=== PATIENT | female | born 1980 | race Caucasian/White ===

== ENCOUNTER 2020-03-22 12:53 | Emergency (ER) | payer SELFPAY ==
[2020-03-22 13:03] VITALS: BP 147/76; PULSE 95; RESP 16; TEMP 35.6; O2SAT 98; BMI 33.6
[2020-03-22 13:53] VITALS: BP 141/83; PULSE 67; RESP 16; O2SAT 98
--- NOTE | 2020-03-22 14:02 | W.ED.DENTAL ---
HPI - Dental/Oral General: Chief complaint: Dental/Oral Stated complaint: tooth ache Time Seen by Provider: 03/22/20 13:50 History of Present Illness: HPI Narrative: 40-year-old female patient presents to the emergency department with 2-week old tooth avulsion, increased pain to the area x2 to 3 days. She reports attempted to get into a dentist but was not able to find an opening. She presents to the ER with nausea, increased sinus congestion. MD Complaint: tooth pain and tooth injury Location: Tooth # (12) Teeth map: 1. Avulsed tooth with root exposure Onset (ago): week(s) (2) Duration: constant Severity: moderate Severity scale (1-10): 5 Relieving factors: NSAIDs Exacerbating factors: chewing and cold Context: trauma (mechanism) Associated symptoms: Reports no associated symptoms; Denies fever(s) or odynophagia Review of Systems General: Reports: 10 or more systems reviewed and unremarkable except in HPI and below Const: Denies: fever(s), chills or diaphoresis Eyes: Denies: blurry vision or eye redness ENMT: Reports: nasal congestion and sinus pain (Left); Denies: throat pain, odynophagia, hoarseness, swelling of lips/tongue, dry mouth or disequilibrium Card: Denies: chest pain, palpitations or irregular heart rhythm Resp: Denies: dyspnea, productive cough, non-productive cough or wheezing GI: Denies: abdominal pain, nausea or vomiting : Denies: difficulty voiding or dysuria Musc: Denies: back pain Skin/Breast: Denies: rash or pruritus Neuro: Denies: headache(s), weakness in extremities or behavioral changes Jarret/Lymph: Denies: easy bruising Physical Exam Const: COMMON NORMALS: no acute distress, patient oriented x3, healthy appearing and alert GENERAL APPEARANCE: cooperative, comfortable and well hydrated HENMT: COMMON NORMALS: normocephalic, EAC's normal, TM's normal bilaterally, Normal external nose present and moist oral mucous membranes HEAD & SCALP: normocephalic FACE & SINUS: sinus tenderness maxillary (Left) and edema on the left maxilla NOSE: Normal external nose present EXTERNAL AUDITORY CANAL: EAC's normal TYMPANIC MEMBRANE: TM's normal bilaterally MOUTH: tongue normal; no drooling and lip not abnormal TEETH & GINGIVA IMAGES: 1. Tooth avulsion with root exposure, gingival edema surrounding the tooth, tenderness to the touch. Surrounding erythema THROAT: posterior oropharynx normal and other (Negative Ayaz's angina); posterior oropharynx not abnormal, no postnasal drainage and uvula not laterally displaced Eye: COMMON NORMALS: Equal, round and reactive pupils present and EOMs intact bilaterally GENERAL EYE: appearance normal, both eyes and all related structures PUPIL: Yes Equal, round and reactive pupils present Neck/C-Spine: COMMON NORMALS: full ROM and no lymphadenopathy GENERAL: Yes normal visual inspection and Yes trachea midline CERVICAL SPINE: Yes cervical ROM normal Lymph: LYMPHATIC: no lymphadenopathy noted Chest: COMMONS NORMALS: normal inspection of the chest Resp: COMMON NORMALS: normal respiratory effort and clear to auscultation bilaterally AUSCULTATION: clear to auscultation bilaterally Cardio: COMMON NORMALS: regular rhythm, S1 normal heart sound present, S2 normal heart sound present and Peripheral pulses 2+ throughout RHYTHM: regular rhythm HEART SOUNDS: S1 normal heart sound present and S2 normal heart sound present PERIPHERAL PULSES: Peripheral pulses 2+ throughout GI: COMMON NORMALS: Normal to inspection, nondistended, normoactive bowel sounds present, Soft to palpation and non-tender INSPECTION: Yes normal to inspection PALPATION: Yes Soft to palpation : COMMON NORMALS: Yes no CVA tenderness BLADDER/KIDNEY EXAM: Yes no CVA tenderness Back/Pelvis: COMMON NORMALS: no CVA tenderness and thoracic and lumbar spine normal to inspection Extremity: COMMON NORMALS: normal to inspection and capillary refill normal Neuro: COMMON NORMALS: patient oriented x3 and no focal motor deficits SENSORIUM/ORIENTATION: Yes alert Psych: COMMON NORMALS: mental status grossly normal, Normal thought process present and cooperative ACTIVITY/MOTOR BEHAVIOR: Yes appropriate eye contact THOUGHT PROCESS: Normal thought process present Skin: COMMON NORMALS: no rashes or lesions noted and turgor normal GENERAL SKIN EXAM: no rashes or lesions noted and turgor normal Course Vital Signs: Vital signs: Vital Signs Temperature 96.6 F L 03/22/20 14:27 Pulse Rate 77 03/22/20 14:27 Respiratory Rate 16 03/22/20 14:27 Blood Pressure 133/88 03/22/20 14:27 Pulse Oximetry 98 03/22/20 13:53 Discharge Plan Discharge Patient Disposition: Home Clinical Impression: Toothache, Dental abscess Condition: Stable Prescriptions: New ibuprofen 800 mg tablet 800 mg PO Q8H PRN (Reason: pain) Qty: 20 RF: 0 Lidocaine Viscous 2 % solution 1 applic MUCOUS MEM Q3H PRN (Reason: pain) Qty: 15 RF: 0 clindamycin HCl 300 mg capsule 300 mg PO Q6H 7 Days Qty: 28 RF: 0 Zofran 4 mg tablet 4 mg PO TID PRN (Reason: nausea and vomiting) 4 Days RF: 0 No Action Qvar RediHaler 40 mcg/actuation Hfa Aerosol Breath Activated 1 inh INHALATION PRN RF: 0 Discharge Orders: Discharge Order (Routine); Ordered 03/22/20 Ordered By: Catalina Camarillo Discharge Diet: GI Soft Discharge Activity: Resume usual activity Patient Instructions: Clindamycin (By mouth), Ibuprofen (By mouth), Lidocaine/Prilocaine (Subgingival), Dental Abscess (ED), Toothache (ED), Dental Abscess Activity Restrictions/Additional Instructions: Take antibiotics until all gone, take antibiotics with food, increase yogurt intake, if not able to tolerate yogurt, may take acidophilus [id number] 2 hours after taking clindamycin 3 times daily. Head of bed elevated this will help reduce swelling Take ibuprofen with food to avoid upset stomach May take Tylenol, 1 g (2 to tablets of 500 mg) 3 times daily for breakthrough pain Contact dentist to schedule appointment for follow-up in 7 days Apply viscous lidocaine to affected area to help with pain Avoid smoking as this will cause increased dental pain If you develop difficulty breathing, swelling underneath her tongue or tongue swelling, you will need to return to the emergency department. Discharge Date/Time: 03/22/20 14:20 Coding Level of Care Code ED Neurosurgery Spine Physician for Ashley Solo Exam Comprehensive
[2020-03-22 14:15] VITALS: BP 133/88; PULSE 77; RESP 16; TEMP 35.9
[2020-03-22 14:27] VITALS: BP 133/88; PULSE 77; RESP 16; TEMP 35.9
== END 2020-03-22 14:20 | disposition home or self-care (01) ==
PROVIDERS: Emergency Provider Nurse Practitioner Family
DX: K04.7 Periapical abscess without sinus (principal)
CPT/HCPCS: 12345; 99281; 99282

== ENCOUNTER 2020-12-24 13:47 | Emergency (ER) | payer SELFPAY ==
[2020-12-24 14:00] VITALS: BP 134/79; PULSE 110; RESP 18; TEMP 37; O2SAT 96; BMI 33.6
--- NOTE | 2020-12-24 15:12 | XRR_ITS ---
PROCEDURE INFORMATION: Exam: XR Chest Exam date and time: 12/24/2020 3:12 PM Age: 40 years old Clinical indication: Cough and dyspnea; Additional info: Dyspnea/cough TECHNIQUE: Imaging protocol: XR of the chest. Views: 1 view. Total images: 1 COMPARISON: No relevant prior studies available. FINDINGS: Lungs: No visible active interstitial or alveolar airspace disease. Pleural spaces: Unremarkable. No pleural effusion. No pneumothorax. Heart/Mediastinum: Unremarkable. No cardiomegaly. Bones/joints: Unremarkable. Soft tissues: Bilateral nipple rings. XR/XR chest 1V portable [id number] IMPRESSION: Nonacute.
[2020-12-24 15:13] VITALS: BP 116/76; PULSE 82; RESP 16; O2SAT 96
[2020-12-24 16:03] LABS: Add Urine Microscopic? NO; Charge for UA Resulting for Rev
--- NOTE | 2020-12-24 16:09 | ED_ITS ---
HPI - General Adult General: Chief complaint: General Medical Stated complaint: sneeze/cough/body aches/chills Time Seen by Provider: 12/24/20 15:11 History of Present Illness: HPI narrative: 40-year-old female presents complaining of cough generalized aching and chills. Cough is been nonproductive she had body aches for the last 2 days. She has been afebrile cough is not productive. She has a history of asthma. She has been using albuterol with minimal improvement. Onset (ago): day(s) Severity: moderate Relieving factors: rest Exacerbating factors: other (Coughing with exertion) Associated symptoms: Reports cough, dyspnea and short of breath; Deny chest pain, confusion, diaphoresis, decreased appetite, fevers/chills, headache(s), malaise, nausea, rash, palpitations, seizures, syncope, vomiting or weakness Treatments prior to arrival: none Review of Systems Const: Denies: malaise or diaphoresis ENMT: Denies: throat pain, ear or mastoid pain, nasal discharge or nasal congestion Card: Denies: chest pain, palpitations or syncope Resp: Reports: dyspnea GI: Denies: nausea or vomiting : Denies: flank pain, difficulty voiding, dysuria, urinary frequency or urinary urgency Skin/Breast: Denies: rash Neuro: Denies: headache(s) or confusion Physical Exam Const: COMMON NORMALS: no acute distress GENERAL APPEARANCE: cooperative and comfortable ORIENTATION/CONSCIOUSNESS: Yes awake, Yes oriented to person, Yes oriented to place and Yes oriented to time HENMT: COMMON NORMALS: normocephalic, atraumatic, hearing grossly normal bilaterally and external ears normal HEAD & SCALP: normocephalic and atraumatic EXTERNAL EAR: Yes external ears normal Neck/C-Spine: COMMON NORMALS: no JVD Resp: COMMON NORMALS: normal respiratory effort, No retractions and No use of accessory muscles AUSCULTATION: wheezes Cardio: COMMON NORMALS: no JVD, regular rate, regular rhythm and No murmurs present (Cardio) RATE: regular rate RHYTHM: regular rhythm GI: COMMON NORMALS: Soft to palpation and No hepatosplenomegaly present AUSCULTATION: Yes normoactive bowel sounds PALPATION: Yes Soft to palpation, No Tenderness to palpation present (GI), No Guarding due to palpation present (GI) and Yes No hepatosplenomegaly present Extremity: COMMON NORMALS: normal to inspection, capillary refill normal, no clubbing, cyanosis or edema, no calf tenderness and no pedal edema Neuro: SENSORIUM/ORIENTATION: Yes oriented to person, Yes oriented to place and Yes oriented to time Skin: COMMON NORMALS: no rashes or lesions noted GENERAL SKIN EXAM: no rashes or lesions noted Course Vital Signs: Vital signs: Vital Signs Temperature 98.6 F 12/24/20 14:00 Pulse Rate 89 12/24/20 17:02 Respiratory Rate 18 12/24/20 16:59 Blood Pressure 116/76 12/24/20 15:13 Pulse Oximetry 97 12/24/20 16:59 MDM - General Adult MDM Narrative: Medical decision making narrative: Improved with treatments will discharge home with Medrol Dosepak albuterol start on Symbicort to have her get set up with pulmonology through case management. Lab Data: Labs: Lab Results 12/24/20 12/24/20 12/24/20 Range/Units 15:58 16:21 16:21 WBC 9.3 (4.0-10.0) 10^3/ uL RBC 4.32 (4.1-5.3) 10^6/u L Hgb 12.9 (11.5-15.3) g/dL Hct 39.2 (37.0-47.0) % MCV 90.7 (81-99) fL MCH 29.9 (28.0-34.0) pg MCHC 32.9 (30.0-36.0) g/dL RDW 12.9 (12.1-15.1) % Plt Count 188 (130-400) 10^3/c mm MPV 10.8 H (7.4-10.4) fL Neut % (Auto) 58.8 % Lymph % (Auto) 34.6 % Upton % (Auto) 5.0 % Eos % (Auto) 0.9 % Baso % (Auto) 0.4 % Neut # (Auto) 5.46 (1.8-7.7) 10^3/u L Lymph # (Auto) 3.2 (0.8-4.8) 10^3/u L Upton # (Auto) 0.5 (0.2-0.9) 10^3/u L Eos # (Auto) 0.1 (0.0-0.8) 10^3/u L Baso # (Auto) 0.0 (0.0-0.1) 10^3/u L Nucleated RBC % (a uto) 0 % Nucleated RBCs # 0.0 /100WBC Sodium 139 (136-145) mmol/L Potassium 4.1 (3.5-5.1) mmol/L Chloride 104 (98-107) mmol/L Carbon Dioxide 24 (22-29) mmol/L Anion Gap 15.1 (5-19) BUN 16 (6-20) mg/dL Creatinine 0.7 (0.5-0.9) mg/dL GFR Calculation 93.2 (90-130) mL/min Glucose 89 (65-115) mg/dL Calculated Osmolal ity 289 (285-295) mOsm/k g Calcium 8.6 (8.5-10.5) mg/dL Total Bilirubin 0.3 (0.15-1.2) mg/dL AST 16 (0-32) U/L ALT 16 (0-33) U/L Alkaline Phosphata se 94 (35-105) IU/L Total Protein 7.0 (6.6-8.7) g/dL Albumin 4.3 (3.5-5.2) g/dL Globulin 2.7 (1.3-4.6) g/dL Urine Color Yellow (Yellow) Urine Appearance Clear (CLEAR) Urine pH 6.5 (5-7) Ur Specific Gravit y 1.015 (1.005-1.030) Urine Protein Neg (Negative) Urine Glucose (UA) Norm (Normal) Urine Ketones Negative (Negative) Urine Blood Neg (Negative) Urine Nitrate Negative (Negative) Urine Bilirubin 1+ H (Negative) Urine Urobilinogen 1 H (Negative) mg/dL Ur Leukocyte Arielle ase Negative (Negative) Discharge Plan Discharge Patient Disposition: Home Clinical Impression: Exacerbation of asthma Condition: Stable Prescriptions: New Medrol (Chago) 4 mg tablets,dose pack See Rx Instructions .ROUTE .COMPLEX Qty: 21 RF: 0 albuterol sulfate 90 mcg/actuation HFA aerosol inhaler 2 inh INHALATION Q4H PRN (Reason: shortness of breath or wheezing) Qty: 18 RF: 0 Symbicort 80-4.5 mcg/actuation HFA aerosol inhaler 2 inh inhalation BID Qty: 10.2 RF: 0 No Action Vitamin D3 50,000 unit PO Q7D RF: 0 Discharge Orders: Discharge ED (Routine); Ordered 12/24/20 Ordered By: Kris Cho Discharge Diet: Usual diet Discharge Activity: Limit activity as instructed Patient Instructions: Opioid Safety Activity Restrictions/Additional Instructions: Case management will call to set you up for an appointment with the manager domestic Coding Level of Care Code ED Edge Glue Machine Tender for Ashley Solo
[2020-12-24 16:13] LABS: Bilirubin Urine 1+ (Negative); Blood Urine Neg (Negative); Glucose Urine UA Norm (Normal); Ketones Urine Negative (Negative); Leukocyte Esterase Urine Negative (Negative); Nitrate Urine Negative (Negative); Protein Urine Neg (Negative); Specific Gravity, Urine 1.015 (1.005-1.030); Urine Appearance Clear (CLEAR); Urine Color Yellow (Yellow); Urobilinogen Urine 1 mg/dL (Negative); pH Urine 6.5 (5-7)
[2020-12-24 16:27] LABS: Basophils % 0.4 %; Eosinophils # 0.1 10^3/uL (0.0-0.8); Eosinophils % 0.9 %; Hematocrit 39.2 % (37.0-47.0); Hemoglobin 12.9 g/dL (11.5-15.3); Lymphocytes # 3.2 10^3/uL (0.8-4.8); Lymphocytes % 34.6 %; Mean Corpuscular HGB Conc 32.9 g/dL (30.0-36.0); Mean Corpuscular Hemoglobin 29.9 pg (28.0-34.0); Mean Corpuscular Volume 90.7 fL (81-99); Mean Platelet Volume 10.8 fL (7.4-10.4); Monocytes # 0.5 10^3/uL (0.2-0.9); Neutrophils # 5.46 10^3/uL (1.8-7.7); Neutrophils % 58.8 %; Nucleated Red Blood Cells % 0 %; Platelet Count 188 10^3/cmm (130-400); Red Blood Count 4.32 10^6/uL (4.1-5.3); Red Cell Distribution Width 12.9 % (12.1-15.1); White Blood Count 9.3 10^3/uL (4.0-10.0)
[2020-12-24 16:49] LABS: Alanine Aminotransferase 16 U/L (0-33); Albumin Level 4.3 g/dL (3.5-5.2); Alkaline Phosphatase 94 IU/L (35-105); Anion Gap 15.1 (5-19); Aspartate Amino Transferase 16 U/L (0-32); Blood Urea Nitrogen 16 mg/dL (6-20); Calcium 8.6 mg/dL (8.5-10.5); Carbon Dioxide 24 mmol/L (22-29); Chloride 104 mmol/L (98-107); Globulin 2.7 g/dL (1.3-4.6); Glomerular Filtration Rate 93.2 mL/min (90-130); Glucose 89 mg/dL (65-115); Osmolality Calculated 289 mOsm/kg (285-295); Potassium 4.1 mmol/L (3.5-5.1); Sodium 139 mmol/L (136-145); Total Bilirubin 0.3 mg/dL (0.15-1.2)
[2020-12-24 16:55] VITALS: PULSE 89
[2020-12-24] MEDS: ipratropium-albuterol 3 mL Neb INHALATION (16:56)
[2020-12-24 16:59] VITALS: PULSE 81; RESP 18; O2SAT 97
[2020-12-24 17:02] VITALS: PULSE 89
[2020-12-24 17:04] LABS: Slide Review Slide Review Perform
== END 2020-12-24 17:07 | disposition home or self-care (01) ==
PROVIDERS: Emergency Provider Family Medicine
DX: J45.901 Unspecified asthma with (acute) exacerbation (principal)
CPT/HCPCS: 36415; 71045; 80053; 81003; 85025; 94640; 99283

== ENCOUNTER 2021-12-23 09:15 | Emergency (ER) | payer SELFPAY ==
[2021-12-23 09:45] VITALS: BP 120/74; PULSE 86; RESP 16; TEMP 36.8; O2SAT 98; BMI 32.8
--- NOTE | 2021-12-23 10:27 | ED_ITS ---
HPI - General Adult General: Chief complaint: General Medical Stated complaint: runny nose; h/a; cough Time Seen by Provider: 12/23/21 10:14 History of Present Illness: Patient comes in with headache, cough, runny nose is been going on for about a week. She states that headache is behind her eyes and her sinuses. States she has a history of headaches and normally takes ibuprofen, Tylenol, or Excedrin. States she is try to use without improvement over the last few days. She is allergic to Toradol. Associated symptoms: Reports headache(s); Deny chest pain, dyspnea, nausea, rash, palpitations or vomiting Review of Systems Const: Denies: fever(s) or body aches Eyes: Denies: change in vision or blurry vision ENMT: Denies: throat pain or odynophagia Card: Denies: chest pain or palpitations Resp: Denies: dyspnea or productive cough GI: Denies: abdominal pain, nausea or vomiting : Denies: flank pain or dysuria Musc: Denies: neck pain or back pain Skin/Breast: Denies: rash or pruritus Neuro: Reports: headache(s); Denies: numbness in extremities Psych: Denies: anxiety or change in appetite Endo: Denies: polyuria or excessive sweating Physical Exam Const: COMMON NORMALS: no acute distress, patient oriented x3, healthy appearing and alert HENMT: COMMON NORMALS: normocephalic and atraumatic HEAD & SCALP: normocephalic and atraumatic Eye: COMMON NORMALS: Equal, round and reactive pupils present and EOMs intact bilaterally PUPIL: Yes Equal, round and reactive pupils present Neck/C-Spine: COMMON NORMALS: full ROM and supple Resp: COMMON NORMALS: normal respiratory effort, No retractions and No use of accessory muscles Cardio: COMMON NORMALS: regular rate and regular rhythm RATE: regular rate RHYTHM: regular rhythm GI: COMMON NORMALS: Normal to inspection, nondistended, normoactive bowel sounds present, Soft to palpation and non-tender PALPATION: Yes Soft to pal pation Back/Pelvis: COMMON NORMALS: thoracic and lumbar spine normal to inspection and no thoracic nor lumbar tenderness Extremity: COMMON NORMALS: normal to inspection and full ROM Neuro: COMMON NORMALS: patient oriented x3 SENSORIUM/ORIENTATION: Yes alert Psych: COMMON NORMALS: mental status grossly normal and cooperative Skin: COMMON NORMALS: no rashes or lesions noted and no wounds GENERAL SKIN EXAM: no rashes or lesions noted Course Vital Signs: Vital signs: Vital Signs Temperature 98.3 F 12/23/21 09:45 Pulse Rate 86 12/23/21 09:45 Respiratory Rate 16 12/23/21 09:45 Blood Pressure 120/74 12/23/21 09:45 Pulse Oximetry 98 12/23/21 09:45 MDM - General Adult Medical Decision Making Patient comes in with headache, cough, runny nose is been going on for about a week. She states that headache is behind her eyes and her sinuses. States she has a history of headaches and normally takes ibuprofen, Tylenol, or Excedrin. States she is try to use without improvement over the last few days. She is allergic to Toradol. We will start her on steroids for 5 days and discharged with precautions return for worsening or changing symptoms. Discharge Plan Discharge Patient Disposition: Home Clinical Impression: Acute inflammation of sinus Condition: Stable Prescriptions: New prednisone 20 mg tablet 60 mg PO DAILY 4 Days Qty: 12 0RF No Action albuterol sulfate 90 mcg/actuation HFA aerosol inhaler 2 inh INHALATION Q4H PRN (Reason: shortness of breath or wheezing) Qty: 18 0RF Excedrin Migraine 250-250-65 mg Tablet 1 tab PO Q6H PRN (Reason: Migraine Headache) 0RF Discharge Orders: Discharge ED (Routine); Ordered 12/23/21 Ordered By: Javier Hylton Coding Level of Care Code ED Early Childhood Aide Classroom for Ashley Solo
[2021-12-23] MEDS: predniSONE 20 mg Tablet 60 MG PO (10:35)
[2021-12-23 10:37] VITALS: BP 113/87; PULSE 79; RESP 16; O2SAT 96
== END 2021-12-23 10:38 | disposition home or self-care (01) ==
PROVIDERS: Emergency Provider Emergency Medicine
DX: J01.90 Acute sinusitis, unspecified (principal)
CPT/HCPCS: 99283; J7512